=== PATIENT | female | born 1980 | race Hispanic/Latino ===

== ENCOUNTER 2018-06-11 08:38 | Day surgery (SDC) | payer OTHER ==
[2018-06-10 10:42] VITALS: BMI 26.4
[2018-06-11 09:35] LABS: #Basophils 0.1 thou/uL (0.0-0.2); #Eosinphils 0.2 thou/uL (0.0-0.7); #Lymphocytes 2.4 thou/uL (1.20-3.40); #Monocytes 0.4 thou/uL (0.11-0.59); #Neutrophils 3.9 thou/uL (1.40-6.50); %Basophils 0.8 % (0.0-1.0); %Eosinophils 3.4 % (0.0-10.0); %Lymphocytes 34.6 % (21.0-51.0); %Monocytes 5.7 % (0.0-10.0); %Neutrophils 55.4 % (42.0-75.0); Hemoglobin 13.8 g/dL (12.0-16.0); Mean Corpuscular HGB CONC 36.3 g/dL (32.0-36.0); Mean Corpuscular Hemoglobin 28.7 pg (27.0-31.0); Mean Corpuscular Volume 79.2 fL (78.0-98.0); Mean Platelet Volume 7.7 fL (7.4-10.4); Platelet Count 223 thou/uL (130-400); RBC Distribution Width 12.6 % (11.5-14.5)
[2018-06-11] MEDS ORDERED: Ondansetron HCl/PF 4 MG/2 ML Vial ONE (10:01)
[2018-06-11] MEDS ORDERED: PROPOFOL 200 MG/20 ML VIAL ONE (10:01)
[2018-06-11] MEDS ORDERED: Lidocaine 1% PF 5 ML VIAL ONE (10:01)
--- NOTE | 2018-06-12 03:01 | OP ---
PREOPERATIVE DIAGNOSIS: Left carpal tunnel syndrome. POSTOPERATIVE DIAGNOSIS: Left carpal tunnel syndrome. FINDINGS: 1. Very tight transverse carpal ligament with stippling over 1 cm area, but no flat in the median ne rve yet. 2. Positive electrodiagnostic clinical test consistent with the diagnosis above. PROCEDURES PERFORMED: 1. Left carpal tunnel release. 2. Injection of Celestone, 3 mL drip technique over the area of the nerve where there was stippling and erythema, left carpal tunnel. TOURNIQUET TIME: 17 minutes. ESTIMATED BLOOD LOSS: 10 mL. INDICATION: The patient with clinical electrodiagnostic and other indications for positive response to injection for carpal tunnel syndrome being her primary pain generator. She failed conservative tr eatment over the 6-month period. DESCRIPTION OF PROCEDURE: After successful general endotracheal anesthesia, limb was prepped and louie ped. The patient had time out done appropriately. We gave her additionally a 7 mL of 0.5% Marcaine. Incisional area was outlined carpal tunnel incision in line with the ring finger from medial, lateral, and then 2 cm long for avoiding the proximal 5 mm of the palm coadjacent with the palm wris t flexion crease. We carried this incision to skin and subcutaneous tissue with the tourniquet inflated and the limb ex sanguinated. We were then able to expose the transverse carpal ligament in the midline, there was ma rked amount of subcutaneous fat which were removed and we gently retract the midline and by transvers e carpal ligament, we began an incision from distal to proximal on the ulnar transverse carpal ligame nt, it is just in line with the fibers of the palmaris longus insertion. We carried the screw throug h the transverse carpal ligament to visualize the flexor tendon sheath seen in the median nerve posit mesha 5 mm to the radial aspect. We will continue along this area in direct visualization with combina tion of [facility] blade and then tenotomy scissors until we had reached well into the palmar fascia of t he forearm. released, we then completely see the transverse carpal ligament and advanced througho ut its length. We then visualized the stippling and erythema without hourglass formation. There was no excess thickening of the flexor tendons, so we placed a 3 mL of Celestone and drip technique over the area with the nerve with more stipple. We released the tourniquet and obtained hemostasis. We have closed incision with interrupted 4-0 nyl on in a mattress pattern and bulky dressing was applied. The patient left the operating room without a splint and a bulky dressing and no evidence of anesthetic or operative complication.
== END 2018-06-11 14:28 | disposition home or self-care (01) ==
LOC: SDC 08:38
PROVIDERS: ATTEND Orthopaedic Surgery Hand Surgery
PROC: 01N50ZZ Release Median Nerve, Open Approach (ICD-10-PCS; principal; 2018-06-11)
PROC: 3E0T33Z Introduction of Anti-inflammatory into Peripheral Nerves and Plexi, Percutaneous Approach (ICD-10-PCS; principal; 2018-06-11)
DX: G56.03 Carpal tunnel syndrome, bilateral upper limbs (principal); Z79.899 Other long term (current) drug therapy
CPT/HCPCS: 85025; 96372; 96374; J2001; J2405; J2704

== ENCOUNTER 2019-07-21 13:36 | Outpatient (CLI) | payer MEDICAID ==
--- NOTE | 2019-07-21 14:31 | MMO ---
Bilateral MAMMO Bilat Diag [facility]. CLINICAL HISTORY: Patient is 38 years old and is seen for diagnostic exam. VIEWS: The views performed were: . FILMS COMPARED: The present examination has been compared to a prior imaging study performed at [facility] on 07/21/2019. This study has been interpreted with the assistance of computer-aided detection. MAMMOGRAM FINDINGS: The breasts are heterogeneously dense, which could obscure a lesion on mammography. There are no suspicious masses, suspicious calcifications, or new areas of architectural distortion. IMPRESSION: THERE IS NO MAMMOGRAPHIC EVIDENCE OF MALIGNANCY. A ROUTINE FOLLOW-UP MAMMOGRAM AT AGE 41 IS RECOMMENDED. THE RESULTS OF THIS EXAM WERE SENT TO THE PATIENT. ACR BI-RADS Category 1 - Negative MAMMOGRAPHY NOTE: 1. A negative mammogram report should not delay a biopsy if a dominant of clinically suspicious mass is present. 2. Approximately 10% to 15% of breast cancers are not detected by mammography. 3. Adenosis and dense breasts may obscure an underlying neoplasm. Reported by: HEIDI NICKERSON MD Electonically Signed: [id number]
--- NOTE | 2019-07-21 14:51 | ULT ---
FOCUSED ULTRASOUND OF THE LEFT BREAST: 07/21/2019 HISTORY: Area of pain, palpable abnormality left breast. FINDINGS: A focused ultrasound in the area of patient concern is provided. Imaging is performed at the 4 o'danni ck position, approximately 1 cm from the nipple. There is no mass or abnormal shadowing seen in this region. In addition, a diagnostic mammography of this region is unremarkable. IMPRESSION: Unremarkable focused ultrasound of the left breast. Negative imaging should not delay biopsy of a cl inically suspicious abnormality. POS: OFF
== END 2019-07-21 13:37 | disposition home or self-care (01) ==
LOC: BICMAMMO 13:36
PROVIDERS: ATTEND Nurse Practitioner Family
DX: N63.20 Unspecified lump in the left breast, unspecified quadrant (principal)
CPT/HCPCS: 77066; G0279

== ENCOUNTER 2019-08-12 07:41 | Outpatient (CLI) | payer MEDICAID, OTHER ==
--- NOTE | 2019-08-12 09:30 | ULT ---
ULTRASOUND OF THE LIVER WITH ALMENDAREZ-SCALE COLOR-FLOW AND SPECTRAL DOPPLER IMAGING: HISTORY: Elevated LFTs. FINDINGS: There is increased echogenicity in the liver, consistent with fatty infiltration, with a few focal ar eas of sparing. No focal mass or intrahepatic ductal dilatation is seen. The common duct measures 3 m m in diameter. No gallstones, gallbladder wall thickening or pericholecystic fluid is seen. The splee n and pancreas are normal. No free fluid is noted. There is normal flow and spectral wave-forms in the hepatic, portal and splenic vasculature. IMPRESSION: Fatty liver. POS: OFF
== END 2019-08-12 07:42 | disposition home or self-care (01) ==
LOC: BICULT 07:41
PROVIDERS: ATTEND Physician Assistant
DX: R74.8 Abnormal levels of other serum enzymes (principal); K76.0 Fatty (change of) liver, not elsewhere classified
CPT/HCPCS: 76705